=== PATIENT | male | born 1965 | race Caucasian/White ===

== ENCOUNTER 2021-02-28 17:53 | Inpatient (IN) | payer MEDICAID ==
[~2021-02-28] VITALS: Ht 185.4 cm; Wt 98.4 kg
[2021-02-28 17:57] VITALS: BP 191/110
[2021-02-28] MEDS ORDERED: ALBUTEROL2.5 MG/0.5 INH (18:03)
[2021-02-28] MEDS ORDERED: NORVASC5 M1 PO (18:03)
[2021-02-28] MEDS ORDERED: PROAIR HFA8.5 GM INH (18:03)
[2021-02-28 18:34] LABS: HEMOGLOBIN 14.8 gm/dL (14.0-18.0); MCH 31.6 pg (26.0-34.0); MCHC 34.5 g/dL (28.0-37.0); MCV 91.6 fL (80.0-100.0); MPV 8.4 fl. (7.2-11.1); NUCLEATED RBCS 0 /100WBC; PLATELET COUNT* 252 thou/uL (150-400); RDW-CV 12.6 % (10.5-14.5); WBC 13.5 thou/uL (4.0-11.0)
[2021-02-28 18:42] LABS: CALCIUM 8.9 mg/dL (8.5-10.1); CREATININE 1.7 mg/dL (0.6-1.3); POTASSIUM 3.8 mmol/L (3.5-5.1)
[2021-02-28 18:47] LABS: TOTAL BILIRUBIN 0.3 mg/dL (<0.1-1.0); TOTAL PROTEIN 7.5 g/dL (6.4-8.2)
[2021-02-28 19:22] LABS: ABSOLUTE MONOCYTES 0.7 thou/uL (0.0-1.2); ABSOLUTE NEUTROPHILS 10.8 thou/uL (1.6-8.1); PLATELET ESTIMATE ADEQUATE
[2021-02-28 19:41] LABS: URINE BILIRUBIN NEGATIVE (Negative); URINE BLOOD NEGATIVE (Negative); URINE CLARITY CLEAR; URINE COLOR YELLOW; URINE GLUCOSE-RANDOM NEGATIVE (Negative); URINE KETONES NEGATIVE (Negative); URINE LEUKOCYTES NEGATIVE (Negative); URINE NITRITE NEGATIVE (Negative); URINE PROTEIN NEGATIVE (Negative); URINE UROBILINOGEN 0.2 E.U./dl (0.2-1.0)
[2021-03-01 02:45] VITALS: BP 170/103
[2021-03-01 06:45] VITALS: BP 159/91
[2021-03-01 08:10] VITALS: BP 159/91
--- NOTE | 2021-03-01 11:49 | EKG ---
[place] [address] ELECTROCARDIOGRAM REPORT Name: BRYNN LOCKETT Room: [address] IN [facility].#: [id number] Admission: 02/28/21 Attend Phys: Yusef Nichole Discharge: 03/01/21 Date of : 61 Date of Service: 02/28/21 1800 Report #: [id number] THIS REPORT FOR: //name// [facility] ED Test Date: 2021-02-28 Test Time: 18:00:01 Pat Name: BRYNN LOCKETT Department: Room: [facility] Gender: M Lap Checker: BLANCHE : 1965 Requested By: Sree Martinez Order Number: [id number] MD: Thomas Campbell Measurements Intervals [place] Rate: 77 P: 22 IN: 139 QRS: 18 QRSD: 95 T: -21 QT: 383 QTc: 434 Interpretive Statements Sinus rhythm Probable left atrial enlargement Subtle high lateral ST segment elevation with inferolateral ST segment depression; ischemia must be considered Baseline wander in lead(s) V6 No previous ECG available for comparison Electronically Signed On 03-01-2021 11:49:22 MEN'S DESIGNER by Thomas Campbell [email or web address] <ELECTRONICALLY SIGNED> By: Thomas Campbell MD, [facility] 03/01/21 1149 1800 1800 Thomas Campbell MD, [facility] /EPI
--- NOTE | 2021-03-01 11:52 | EKG ---
[place] [address] ELECTROCARDIOGRAM REPORT Name: BRYNN LOCKETT Room: [address] IN [facility]#: [id number] Admission: 02/28/21 Attend Phys: Yusef Nichole Discharge: 03/01/21 Date of : 61 Date of Service: 02/28/212030 Report #: [id number] THIS REPORT FOR: //name// [facility] ED Test Date: 2021-02-28 Test Time: 20:31:39 Pat Name: BRYNN LOCKETT Department: Room: [facility] Gender: M Shactor Helper: BLANCHE : 1965 Requested By: Vandana Chavez Order Number: [id number] MD: Thomas Campbell Measurements Intervals [place] Rate: 72 P: 38 VT: 145 QRS: 15 QRSD: 96 T: 1 QT: 395 QTc: 433 Interpretive Statements Sinus rhythm Abnormal R-wave progression, early transition Inferior and anterolateral ST segment depression with subtle high lateral ST segment elevation; ischemia must be considered Compared to ECG 02/28/2021 18:00:01 No significant changes Electronically Signed On 03-01-2021 11:52:16 [employer]ILROAD CAR [employer] by Thomas Campbell [email or web address] <ELECTRONICALLY SIGNED> By: Thomas Campbell MD, [facility] 03/01/21 1152 30 30 Thomas Campbell MD, [facility] /EPI
== END 2021-03-01 08:16 | disposition left against medical advice (07) | DRG 282 ==
LOC: M.ERS 17:53 → M.TBA-ER 22:45
PROVIDERS: Physician Assistant; ADMIT Internal Medicine; ATTEND Internal Medicine
DX: I21.4 Non-ST elevation (NSTEMI) myocardial infarction (principal); Z88.8 Allergy status to other drugs, medicaments and biological substances; Z53.29 Procedure and treatment not carried out because of patient's decision for other reasons; J44.9 Chronic obstructive pulmonary disease, unspecified; Z20.822 Contact with and (suspected) exposure to COVID-19